=== PATIENT | female | born 1995 | race Caucasian/White ===

== ENCOUNTER 2016-12-26 19:37 | Emergency (ER) | payer OTHER ==
[2016-12-26] MEDS ORDERED: KETOROLAC TROMETHAMINE 30 MG/1ML VIAL IVP ONE (19:57)
[2016-12-26] MEDS ORDERED: ONDANSETRON HCL/PF 4 MG/ 2ML VIAL IVP ONE (19:57)
[2016-12-26] MEDS ORDERED: 0.9 % SODIUM CHLORIDE 1,000 ML IV ONE (19:58)
--- NOTE | 2016-12-26 20:00 | ED Physician Documentation ---
Flank Pain - HISTORIAN Historian: patient, parent (mom) - HPI Stated Complaint: right flank pain Chief Complaint: Flank Pain Additional Information: Right flank pain began at 1900. Comes in waves. Radiates to right iliac area. Feels like the pain she had with left sided kidney pain 02/23. Nauseated and has been throwing up. Associated Symptoms: denies: fever Exacerbated by: nothing Relieved by: nothing - ROS CONST: no problems - SOCIAL HX Smoking History: non-smoker Alcohol Use: none Drug Use: none - FAMILY HX Family History: other (MGF at 39 with heart disease) - PAST HX Past History: kidney stones, other (psych) Surgeries/Procedures: none - VITAL SIGNS Vital Signs: Vital Signs Temp Pulse Resp BP Pulse Ox 126/73 03/01/16 12:41 - REVIEWED ASSESSMENTS Nursing Assessment Reviewed: Yes Vitals Reviewed: Yes Progress - Progress Progress: CT abdomen and pelvis without contrast CLINICAL HISTORY: Right flank pain radiating posteriorly. History of kidney stone. TECHNIQUE: CT of the abdomen and pelvis is performed without oral or intravenous administration of contrast. Sagittal and coronal reconstructions are performed by the technologist. FINDINGS: Visualized lung bases are clear. The liver and spleen demonstrate normal attenuation without focal defect. Gallbladder is normally distended. There is no pancreatic or adrenal abnormality. The kidneys are of normal size, shape and position. There is mild fullness in the right renal collecting system and right ureter with a 2 mm stone at the right ureterovesical junction. Left collecting system is unremarkable. There is no evident intrarenal calculus. There is no retroperitoneal mass or significant adenopathy. The appendix is visualized and is within normal limits. Uterus and adnexal structures are within normal limits with small ovarian follicles. Bladder is unremarkable. IMPRESSION: 2 mm stone at the right ureterovesical junction with mild right obstructive uropathy. Negative appendix. No intrarenal calculi. Electronically signed on December 26, 2016 11:01:45 PM CDT by: Gelacio Tang ED Results Lab/Radiology - Orders Orders: ED Orders Category Date Time Status ED Nursing Assessment 1T Care 12/26/16 19:47 Active CBC/PLATELET/DIFF Routine Lab 12/26/16 Ordered CMP Routine Lab 12/26/16 Ordered URINALYSIS Routine Lab 12/26/16 Ordered URINE HCG Stat Lab 12/26/16 Uncollected Ketorolac Tromethamine [Toradol] Med 12/26/16 19:57 Once 30 mg IVP NOW ONE NORMAL SALINE @ 1000 MLS/HR ( 1000ml BOLUS) Med 12/26/16 19:58 Ordered 0.9 % Sodium Chloride [Normal Saline] 1,000 ml IV Q1H Ondansetron HCl/Pf [Zofran 4 mg/2 ml] Med 12/26/16 19:57 Once 4 mg IVP NOW ONE Abdominal Pain Physical Exam - Physical Exam General Appearance: alert, moderate distress, other (obese) EENT: eye inspection normal, ENT inspection normal, pharynx normal, TAVARES NECK: normal inspection, supple RESPIRATORY: no resp distress, breath sounds normal CVS: reg rate & rhythm, heart sounds normal, no murmur ABDOMEN: soft, tenderness (diffuse), abnormal bowel sounds (quiet, but not silent) RECTAL: deferred BACK: normal inspection, no CVA tenderness SKIN: warm/dry, normal color EXTREMITIES: normal range of motion (gait), no evidence of injury NEURO: CN's nml as tested, motor nml, sensation nml Vital Signs: Vital Signs Temp Pulse Resp BP Pulse Ox 126/73 03/01/16 12:41 Discharge Clincal Impression: Kidney stone Referrals: Irma Tsai MD [Primary Care Provider] - 2 Days Home Medications: Ambulatory Orders Vortioxetine Hydrobromide [Brintellix] 10 mg PO D 03/01/16 Tamsulosin HCl [Flomax] 0.4 mg PO [id number] #5 cap.er.24h 12/26/16 Tramadol HCl [Ultram] 50 mg PO Q4H PRN #15 tablet 12/26/16 Condition: Good Disposition: 01 HOME, SELF-CARE Decision to Admit: NO Decision Time: 23:11
[2016-12-26 20:15] LABS: COLOR,URINE YELLOW (YELLOW)
[2016-12-26 20:16] LABS: APPEARANCE,URINE CLEAR (CLEAR); PH URINE 5.5 (5.0 - 8.0)
[2016-12-26 20:17] LABS: OCCULT BLOOD,URINE 3+ (NEGATIVE)
[2016-12-26 20:51] LABS: BASOPHILS % 0.3 (0.0-1.5); EOSINOPHILS % 1.3 % (0.0-6.8); MEAN CORPUSCULAR HEMOGLOBIN 28.8 pg (28.0-34.0); MEAN CORPUSCULAR VOLUME 82.2 fl (80.0-100.0); MONOCYTES % 5.8 % (0.0-11.0); NEUTROPHILS # 5.8 # k/uL (1.4-7.7)
[2016-12-26 21:07] LABS: eGFR (African) > 60; eGFR (Non-African) > 60
[2016-12-26] MEDS ORDERED: MORPHINE SULFATE 4 MG/ML DISP.SYRIN IVP ONE (22:35)
[2016-12-26] MEDS ORDERED: TAMSULOSIN HCL 0.4 MG CAP.ER.24H PO ONE (23:07)
[2016-12-26] MEDS ORDERED: traMADol HCL 50 MG TABLET PO ONE (23:09)
--- NOTE | 2016-12-27 00:17 | Diagnostic Imaging Report ---
LUCHO OLIVER~ [facility] [address] [facility] [address] [place], [place]. [address] ~ ~ ~ ~ Report Submission Date: December 26, 2016 11:01:45 PM CDT Patient ~ Study Name: CRICKET DAVE ~ Date: December 26, 2016 9:57:55 PM CDT ~ Modality Type: CT\SR Gender: F ~ Description: CT ABD & PELVIS W/O CO : 95 ~ Institution: [facility] Physician: LUCHO OLIVER ~ ~ ~ ~ CT abdomen and pelvis without contrast CLINICAL HISTORY: ~ Right flank pain radiating posteriorly. ~History of kidney stone. ~ TECHNIQUE: ~ CT of the abdomen and pelvis is performed without oral or intravenous administration of contrast. ~Sagittal and coronal reconstructions are performed by the technologist. FINDINGS: ~ Visualized lung bases are clear. ~The liver and spleen demonstrate normal attenuation without focal defect. ~Gallbladder is normally distended. ~There is no pancreatic or adrenal abnormality. ~The kidneys are of normal size, shape and position. ~There is mild fullness in the right renal collecting system and right ureter with a 2 mm stone at the right ureterovesical junction. ~Left collecting system is unremarkable. ~There is no evident intrarenal calculus. ~ There is no retroperitoneal mass or significant adenopathy. ~The appendix is visualized and is within normal limits. ~Uterus and adnexal structures are within normal limits with small ovarian follicles. ~Bladder is unremarkable. IMPRESSION: ~ 2 mm stone at the right ureterovesical junction with mild right obstructive uropathy. ~ Negative appendix. ~ No intrarenal calculi. ~ Electronically signed on December 26, 2016 11:01:45 PM CDT by: Gelacio KARIMI
[2016-12-27 07:14] VITALS: BP 128/76
== END 2016-12-26 23:30 | disposition home or self-care (01) ==
LOC: ED 19:37
DX: N20.0 Calculus of kidney (principal)
CPT/HCPCS: 74176; 80053; 81002; 81025; 85025; J1885; J2270; J2405; J7030; S1016